=== PATIENT | female | born 1935 | race Caucasian/White ===

== ENCOUNTER 2016-08-07 10:31 | Day surgery (SDC) | payer MEDICARE ==
[~2016-08-07] VITALS: Ht 171.4 cm; Wt 93.4 kg
[~2016-08-07 10:31] MED LIST: ASCO500T8 PO; BUME1TAB17 PO; CALC-52 PO; CHOL200047 PO; CYAN100T PO; DABI150C PO; FOLI-75 PO; LETR2.5T4 PO; METF500S PO; METO100T5 PO; NORT25CA3 PO; NORT50CA PO; OMEP20CA4 PO
--- OUTSIDE RECORDS SUMMARY | 2016-08-07 10:35 | XMS REPORT | Continuity of Care Document ---
Author Author [facility] Organization [facility] Address Unknown Phone Unavailable Support Name Relationship Address Phone MARY ANN LONDONO MD Caregiver [facility] [address] [place] [address] JERMAINE CHAVEZ [address] [place] [address] [phone] HILL GODWIN DO Caregiver [facility] [address] [place] [address] [phone] GABRIELA TOVAR Next Of Kin [address] [place] [address] Insurance Providers Payer Name Policy Number Subscriber Name Relationship Medicare [id number] Kimberli June 18 Self [facility] [id number] Kimberli June 18 Self Advance Directives Directive Response Recorded Date/Time Ordered Resuscitation Status Full Code 07/11/14 3:14pm Resuscitation Documents on File No 07/11/14 2:57pm Problems No known problems or medical conditions. Medications Medication Dose Route Sig Days/Qty Instructions Order Date Discontinued Date Status Metoprolol Succinate 75 Mg PO BEDTIME 07/11/14 Active Omeprazole 20 Mg PO NEEDED Take 1 capsule, by mouth, one time a day before breakfast. 07/11/14 Active Nortriptyline HCl 25 Mg PO TWICE A DAY 07/11/14 Active Cholecalciferol (Vitamin D3) 1 Cap PO BEDTIME 07/11/14 Active Ezetimibe 1 Tab PO DAILY 07/11/14 Active Ascorbic Acid 1 Tab PO DAILY 07/11/14 Active Cyanocobalamin 1 Tab PO DAILY 07/11/14 Active [place]-3 Fatty Acids/Fish Oil 1,000 Mg PO DAILY 07/11/14 Active Multivitamin/Iron/Folic Acid 1 Tab PO DAILY 07/11/14 Active Calcium Carbonate 1,500 Mg PO DAILY 07/11/14 Active Aspirin 0.5 Tab PO BEDTIME 07/11/14 Active Social History Social History Problem Response Recorded Date/Time Chewing Tobacco Status No 07/12/2014 9:07am Hx Substance Use No 07/12/2014 9:07am Hx Alcohol Use No 07/12/2014 9:07am Has the pt used tobacco in the last 12 months No 07/12/2014 9:07am Query Response Start Date Stop Date Smoking Status Never smoker Hospital Discharge Instructions No hospital discharge instructions. Plan of Care No plan of care. Functional Status No functional status results. Allergies, Adverse Reactions, Alerts Allergen Type Severity Reaction Status Last Updated Gabapentin Allergy Unknown MENTAL CHANGES Active 07/11/14 Immunizations Name Given Type Hx Influenza Vaccination Y FALL 2013 Historical Hx Pneumococcal Vaccination Y 2008 Historical Hx Influenza Vaccination Y FALL 2013 Historical Vital Signs Acute Vital Signs Vital Response Date/Time Temperature (Fahrenheit) 96.0 deg F (96.8 - 99.1) Temperature (Calculated Celsius) 35.90899 degrees C (36.0 - 37.3) Pulse Rate (adult) 86 bpm (60 - 100) Respiratory Rate 16 breaths/min (10 - 20) Height 5 ft 6.5 in Weight 244 lb Body Mass Index 38.0 kg/m^2 Results Test Source Date Result Interp. Ref. Range Comments Activated Partial Thromboplast Time July 12, 2014 7:14am 30.8 SEC N 24-36 Alanine Aminotransferase (ALT/SGPT) July 12, 2014 7:14am 27 U/L N 9- 52 Albumin July 12, 2014 7:14am 3.9 G/DL N 3.5-5.0 Albumin % (PEP) July 01, 2014 5:00pm 56.2 % - Albumin (PEP) July 01, 2014 5:00pm 4.0 g/dL - Albumin/Globulin Ratio July 12, 2014 7:14am 1.1 RATIO N 1.1-2.2 Alkaline Phosphatase July 12, 2014 7:14am 71 U/L N 38-126 Mzvgk-1-Dawtatgzv July 01, 2014 5:00pm 0.3 g/dL - Kquqn-2-Tanzkwacv (%) July 01, 2014 5:00pm 4.1 % - Kerno-1-Gbaodszqg July 01, 2014 5:00pm 0.8 g/dL - Osvag-4-Jkxfzofhz (%) July 01, 2014 5:00pm 10.6 % - Anion Gap July 12, 2014 7:14am 11 MEQ/L N 5-15 Aspartate Amino Transf (AST/SGOT) July 12, 2014 7:14am 23 U/L N 14- 36 BUN/Creatinine Ratio July 12, 2014 7:14am 20 RATIO N 6-26 Basophils # (Auto) July 12, 2014 7:14am 0.1 T/MM3 N 0-0.2 COMMENT SCU WILL CALL Basophils (%) (Auto) July 12, 2014 7:14am 0.8 % N 0-2 COMMENT SCU WILL CALL Yydv-0-Pyzljwxx July 01, 2014 5:00pm 0.4 g/dL - Rncv-1-Cxadbewb (%) July 01, 2014 5:00pm 6.1 % - Vftw-6-Thhxnlza July 01, 2014 5:00pm 0.5 g/dL - Qujo-3-Sdvffhij (%) July 01, 2014 5:00pm 6.7 % - Blood Urea Nitrogen July 12, 2014 7:14am 16.0 MG/DL N 7-17 CA 27.29 July 01, 2014 5:00pm 16.80 U/ML N 0-37.7 Calcium Level July 12, 2014 7:14am 9.6 MG/DL N 8.4-10.2 Calculated Osmolality July 12, 2014 7:14am 276 MOSM/KG N 261-280 Carbon Dioxide Level July 12, 2014 7:14am 26 MEQ/L N 22-30 Chemistry Specimen Hemolysis July 12, 2014 7:14am < 15 0-25 0-25 : No Hemolysis.26-70: Slight Hemolysis - can falsely elevate K and Urine Protein. 71-285: Moderate Hemolysis - can falsely elevate K, Troponin I, CA 19-9, PTH, CSF GLucose, and Urine Protein, and can falsely decrease Phenytoin. 286-999: Gross Hemolysis - can falsely elevate K, Troponin I, CA 19-9, PTH, CSF Glucose, and Urine Protine, and can falsely decrease Phenytoin. Recommend specimen recollection. Chloride Level July 12, 2014 7:14am 105 MEQ/L N 98-107 Creatinine July 12, 2014 7:14am 0.8 MG/DL N 0.7-1.2 Eosinophils # (Auto) July 12, 2014 7:14am 0.1 T/MM3 N 0-0.5 COMMENT SCU WILL CALL Eosinophils (%) (Auto) July 12, 2014 7:14am 1.7 % N 0-4 COMMENT SCU WILL CALL Free [place] Light Chains July 01, 2014 5:00pm 2.16 mg/dL H - Reference Range:0.3300-1.94 Free [place]/Lambda Light Chain Ratio July 01, 2014 5:00pm 1.18 - Reference Range:0.2600-1.65 Test Performed by: [place] [address] Show Dog Trainer: Jian Monte M.D. Immunoglobulin Free Light Chains, Serum performed at [facility], [address] [place] [address] Fence Erector Supervisor Cooper Turner MD Free Lambda Light Chains July 01, 2014 5:00pm 1.83 mg/dL - Reference Range:0.5700-2.63 Test Performed by: [place] [address] Show Dog Trainer: Jian Monte M.D. Immunoglobulin Free Light Chains, [place] [address] Fence Erector Supervisor Cooper Turner MD Gamma Globulins July 01, 2014 5:00pm 1.2 g/dL - Gamma Globulins (%) July 01, 2014 5:00pm 16.3 % - Immunoelectrophoresis, no IMQ performed at [facility], [address] [place] [id number] Fence Erector Supervisor Cristofer Bowers DO Globulin July 12, 2014 7:14am 3.4 G/DL N 2.4-3.6 Glomerular Filtration Rate Calc July 12, 2014 7:14am 69 - Glucose Level July 12, 2014 7:14am 131 MG/DL H 65-110 Hematocrit July 12, 2014 7:14am 40.1 % N 36-46 COMMENT SCU WILL CALL Hemoglobin July 12, 2014 7:14am 13.2 GM/DL N 12-16 COMMENT SCU WILL CALL Icterus Index July 12, 2014 7:14am < 2 0-7 Immature Granulocyte # (Auto) July 12, 2014 7:14am 0.01 T/MM3 N 0.00 -0.03 COMMENT SCU WILL CALL Immature Granulocyte % (Auto) July 12, 2014 7:14am 0.1 % N 0.0-0.5 COMMENT SCU WILL CALL Immunoglobulin A July 01, 2014 5:00pm 351.01 MG/DL N 70-400 Immunoglobulin G July 01, 2014 5:00pm 1269.56 MG/DL N 700-1600 Immunoglobulin M July 01, 2014 5:00pm 93.72 MG/DL N 40-230 Lab Scanned Report July 03, 2014 12:43am LAB TEST FORM REQUEST - Lactate Dehydrogenase July 01, 2014 5:00pm 555 U/L N 313-618 Lymphocytes # (Auto) July 12, 2014 7:14am 2.5 T/MM3 N 1-4.8 COMMENT SCU WILL CALL Lymphocytes (%) (Auto) July 12, 2014 7:14am 33.2 % N 23-45 COMMENT SCU WILL CALL Mean Corpuscular Hemoglobin July 12, 2014 7:14am 30.2 UUG N 26-34 COMMENT SCU WILL CALL Mean Corpuscular Hemoglobin Concent July 12, 2014 7:14am 32.9 GM/DL N 31-37 COMMENT SCU WILL CALL Mean Corpuscular Volume July 12, 2014 7:14am 91.8 UM3 N 80-100 COMMENT SCU WILL CALL Mean Platelet Volume July 12, 2014 7:14am 10.5 UM3 N 9.4-12.4 COMMENT SCU WILL CALL Monocytes # (Auto) July 12, 2014 7:14am 0.5 T/MM3 N 0-0.8 COMMENT SCU WILL CALL Monocytes (%) (Auto) July 12, 2014 7:14am 7.1 % N 0-9.0 COMMENT SCU WILL CALL Neutrophils # (Auto) July 12, 2014 7:14am 4.3 T/MM3 N 1.8-7.7 COMMENT SCU WILL CALL Neutrophils (%) (Auto) July 12, 2014 7:14am 57.1 % N 33-66 COMMENT SCU WILL CALL Platelet Count July 12, 2014 7:14am 218 T/MM3 N 130-400 COMMENT SCU WILL CALL Potassium Level July 12, 2014 7:14am 4.1 MEQ/L N 3.6-5 Protein Electrophoresis Comment July 01, 2014 5:00pm see below - No monoclonal peaks or restricted areas observed byimmunofixation. Beta 2 greater than beta 1 is abnormal. Prothromb Time International Ratio July 12, 2014 7:14am 1.14 H 0.81- 1.09 THERAPUTIC RANGE=2.00-3.00 FOR ANTI-THROMBOSIS THERAPUTIC RANGE=2.50- 3.50 FOR IMPLANTED VALVE RDW Standard Deviation July 12, 2014 7:14am 45.3 FL N 36.9-50.2 COMMENT SCU WILL CALL Red Blood Count July 12, 2014 7:14am 4.37 M/MM3 N 4.00-5.20 COMMENT SCU WILL CALL Serum Total Protein July 01, 2014 5:00pm 7.1 g/dL - Immunoelectrophoresis, no IMQ performed at [facility], [address] [place] [address] Fence Erector Supervisor Cristofer Bowers DO Sodium Level July 12, 2014 7:14am 142 MEQ/L N 134-144 Total Bilirubin July 12, 2014 7:14am 0.70 MG/DL N 0.20-1.30 Total Protein July 12, 2014 7:14am 7.3 G/DL N 6.3-8.2 Turbidity July 12, 2014 7:14am < 20 0-20 White Blood Count July 12, 2014 7:14am 7.6 T/MM3 N 4.5-11.0 COMMENT SCU WILL CALL Procedures Procedure Status Date Provider(s) ULTRASOUND BREAST LIMITED completed 06/20/14 COMPUTER DX MAMMOGRAM ADD-ON completed 06/20/14 [id number]"DIAGNOSTIC MAMMOGRAPHY, PRODUCING DIRECT DIGITAL IMAG completed ROUTINE VENIPUNCTURE completed 07/01/14 COMPREHEN METABOLIC PANEL completed 07/01/14 ASSAY IGA/IGD/IGG/IGM EACH completed 07/01/14 ASSAY IGA/IGD/IGG/IGM EACH completed 07/01/14 ASSAY IGA/IGD/IGG/IGM EACH completed 07/01/14 LACTATE (LD) (LDH) ENZYME completed 07/01/14 ASSAY NEPHELOMETRY NOT SPEC completed 07/01/14 ASSAY NEPHELOMETRY NOT SPEC completed 07/01/14 ASSAY OF PROTEIN SERUM completed 07/01/14 PROTEIN E-PHORESIS SERUM completed 07/01/14 IMMUNOASSAY TUMOR CA 15-3 completed 07/01/14 IMMUNOFIX E-PHORESIS SERUM completed 07/01/14 Simple mastectomy of left breast with sentinel node biopsy completed MARY ANN LONDONO MD Encounters Encounter Location Date/Time Registered Clinic [facility] 07/01/14 4:44pm Registered Clinic [facility] 06/20/14 12:57pm
--- OUTSIDE RECORDS SUMMARY | 2016-08-07 10:35 | XMS REPORT | Continuity of Care Document ---
Author Author [facility] Organization [facility] Address Unknown Phone Unavailable Support Name Relationship Address Phone HILL GODWIN DO Caregiver [address] [place] [address] Unavailable IAN CASAREZ MD Caregiver Unknown Unavailable GABRIELA TOVAR Next Of Kin [address] [place] [address] Insurance Providers Guarantor Kimberli June Address [address] [place] [address] Email DENIED/NO PT PORTAL Payer Medicare Policy Number [id number] Subscriber's Name Kimberli June Relationship 18 Self Payer [facility] Policy Number [id number] Subscriber's Name Kimberli June Relationship 18 Self Advance Directives Directive Response Recorded Date/Time Ordered Resuscitation Status Full Code, unverified 02/13/16 12:25pm Resuscitation Documents on File Yes 02/14/16 12:28pm DPOA for Healthcare Only Yes 02/14/16 12:28pm Living Will Yes 02/14/16 12:28pm Problems Active Problems Medical Problem Onset Date Status Atrial fibrillation with RVR Unknown Resolved Essential hypertension Unknown Hyperglycemia due to type 2 diabetes mellitus Unknown Acute Hypertension, essential Unknown Chronic Obese Unknown Chronic Poorly controlled type 2 diabetes mellitus Unknown Acute Medications Current Home Medications Medication Dose Units Route Directions Days Qty Instructions Start Date Ascorbic Acid (Vitamin C) 500 Mg Tab.chew 500 Mg Oral Daily 07/11 Bumetanide 1 Mg Tablet 1 Tab Oral Daily 90 02/12/16 Calcium Carbonate (Calcium) 500 Mg Tablet 1,500 Mg Oral Daily Cholecalciferol (Vitamin D3) (Vitamin D3) 2,000 Unit Capsule 2,000 Mg Oral Daily 07/11/14 Cyanocobalamin (Vitamin B-12) Unknown Strength Tablet 1 Tab Oral Daily 07/11/14 Dabigatran Etexilate Mesylate (Pradaxa) 150 Mg Capsule 150 Mg Oral Twice A Day for Anticoagulation 30 Days 60 Capsule 10/12/15 Letrozole 2.5 Mg Tablet 2.5 Mg Oral Daily 08/28/15 Metformin Hcl 500 Mg Tablet 500 Mg Oral Twice Daily With Meals 30 Days Take one tablet, by mouth, 2 times a day with Meals. 08/28/15 Metoprolol Tartrate 100 Mg Tablet 1 Tab Oral Twice A Day 60 Multivitamin/Iron/Folic Acid (Centrum Complete Multivit Tab) 1 Each Tablet 1 Tab Oral Daily 07/11/14 Nortriptyline Hcl 25 Mg Capsule 25 Mg Oral Am 07/11/14 Nortriptyline Hcl 25 Mg Capsule 50 Mg Oral Bedtime 08/28/15 Omeprazole (Prilosec) 20 Mg Capsule.dr 20 Mg Oral As Needed 07/11 Past Home Medications Medication Directions Ordered Status Aspirin 81 Mg Tab.chew, 1 Tab Oral Daily 07/11/14 Discontinued Dabigatran Etexilate Mesylate (Pradaxa) 150 Mg Capsule, 150 Mg Oral Twice A Day for Anticoagulation 10/12/15 Discontinued Metoprolol Succinate 50 Mg Tab.er.24h, 75 Mg Oral Daily 07/11/14 Discontinued [place]-3 Fatty Acids/Fish Oil (Fish Oil 1,000 Mg Capsule) 1 Each Capsule, 1000 Mg Oral Daily 07/11/14 Discontinued Social History Social History Problem Response Recorded Date/Time Onset Date Status Chewing Tobacco Status No 02/14/2016 12:29pm Not Applicable Not Applicable Hx Substance Use No 02/14/2016 12:29pm Not Applicable Not Applicable Hx Alcohol Use No 02/14/2016 12:29pm Not Applicable Not Applicable Has the pt used tobacco in the last 12 months No 02/14/2016 12:29pm Not Applicable Not Applicable Tobacco Usage none 10/11/2015 5:12pm Not Applicable Not Applicable Query Response Start Date Stop Date Smoking Status Never smoker Hospital Discharge Instructions No hospital discharge instructions. Plan of Care Discharge Date 02/14/16 4:00pm Prescriptions See Medication Section Functional Status Query Response Date Recorded Ability to complete ADL's impeded by No change February 14, 2016 12:28pm Allergies, Adverse Reactions, Alerts Allergen Type Severity Reaction Status Last Updated Gabapentin Allergy Unknown MENTAL CHANGES Active 07/11/14 Atorvastatin Allergy Unknown Active 08/28/15 Immunizations Query Response on File Recorded Date/Time Hx Influenza Vaccination Y FEB 2015 02/14/16 12:29pm Hx Pneumococcal Vaccination No 02/14/16 12:29pm Hx Influenza Vaccination Y FEB 2015 02/14/16 12:29pm Influenza Vaccine Hx 02/201510/12/15 11:31am Vital Signs Acute Vital Signs Vital Response Date/Time Temperature (Fahrenheit) 96.9 deg F (96.8 - 99.1) 02/14/2016 3:21pm Temperature (Calculated Celsius) 36.27090 degrees C (36.0 - 37.3) 02/14/2016 3:21pm Temperature Source Temporal 02/14/2016 3:21pm Pulse Rate (adult) 100 bpm (60 - 100) 02/14/2016 3:50pm Respiratory Rate 16 breaths/min (10 - 20) 02/14/2016 3:50pm O2 Sat by Pulse Oximetry 96 % (90 - 100) 02/14/2016 3:50pm Oxygen Delivery Method Room Air 02/14/2016 3:50pm Blood Pressure 135/86 mm Hg 02/14/2016 3:50pm Blood Pressure Source Automatic Cuff 02/14/2016 3:50pm Height (Feet) 5 feet 02/14/2016 12:05pm Height (Inches) 7.00 inches 02/14/2016 12:05pm Weight (Kilograms) 94.700 kg 02/14/2016 12:05pm Body Mass Index (BMI) 32.7 02/14/2016 12:05pm Results Laboratory Results Test Name Result Units Flags Reference Collection Date/Time Result Date/ Time Comments White Blood Count 7.4 T/MM3 4.5-11.0 01/03/2016 9:30am 01/03/2016 9: 38am Red Blood Count 4.27 M/MM3 4.00-5.20 01/03/2016 9:30am 01/03/2016 9: 38am Hemoglobin 12.8 GM/DL 12-16 01/03/2016 9:30am 01/03/2016 9:38am Hematocrit 39.8 % 36-46 01/03/2016 9:30am 01/03/2016 9:38am Mean Corpuscular Volume 93.2 UM3 80-100 01/03/2016 9:30am 01/03/2016 9: 38am Mean Corpuscular Hemoglobin 30.0 UUG 26-34 01/03/2016 9:30am 2015 9:38am Mean Corpuscular Hemoglobin Concent 32.2 GM/DL 31-37 01/03/2016 9:3001/03/2016 9:38am RDW Standard Deviation 48.4 FL 36.9-50.2 01/03/2016 9:3001/03/2016 9 :38am Platelet Count 236 T/MM3 130-400 01/03/2016 9:3001/03/2016 9:38am Mean Platelet Volume 10.8 UM3 9.4-12.4 01/03/2016 9:3001/03/2016 9: 38am Neutrophils (%) (Auto) 58.9 % 33-66 01/03/2016 9:3001/03/2016 9: 38am Lymphocytes (%) (Auto) 30.7 % 23-45 01/03/2016 9:01/03/2016 9: 38am Monocytes (%) (Auto) 6.2 % 0-9.0 01/03/2016 9:01/03/2016 9:38am Eosinophils (%) (Auto) 3.1 % 0-4 01/03/2016 9:3001/03/2016 9:38am Basophils (%) (Auto) 0.8 % 0-2 01/03/2016 9:01/03/2016 9:38am Immature Granulocyte % (Auto) 0.3 % 0.0-0.5 01/03/2016 9:2015 9:38am Absolute Neutrophils (auto) 4.4 T/MM3 1.8-7.7 01/03/2016 9:2015 9:38am Absolute Lymphocytes (auto) 2.3 T/MM3 1-4.8 01/03/2016 9:302015 9:38am Absolute Monocytes (auto) 0.5 T/MM3 0-0.8 01/03/2016 9:3001/03/2016 9:38am Absolute Eosinophils (auto) 0.2 T/MM3 0-0.5 01/03/2016 9:302015 9:38am Absolute Basophils (auto) 0.1 T/MM3 0-0.2 01/03/2016 9:3001/03/2016 9:38am Absolute Immature Granulocyte (auto 0.02 T/MM3 0.00-0.03 01/03/2016 9: 30am 01/03/2016 9:38am Icterus Index < 2 0-7 01/03/2016 9:3001/03/2016 9:44am Chemistry Specimen Hemolysis < 15 0-25 01/03/2016 9:30am 01/03/2016 9 :44am 0-25: Specimen Exhibited No Hemolysis. Turbidity < 20 0-20 01/03/2016 9:30am 01/03/2016 9:44am Sodium Level 142 MEQ/L 134-144 01/03/2016 9:3001/03/2016 9:44am Potassium Level 4.0 MEQ/L 3.6-5 01/03/2016 9:3001/03/2016 9:44am Chloride Level 105 MEQ/L 98-107 01/03/2016 9:30am 01/03/2016 9:44am Carbon Dioxide Level 26 MEQ/L 22-30 01/03/2016 9:30am 01/03/2016 9: 44am Anion Gap 11 MEQ/L 5-15 01/03/2016 9:30am 01/03/2016 9:44am Blood Urea Nitrogen 23.0 MG/DL H 7-17 01/03/2016 9:3001/03/2016 9: 44am Creatinine 1.0 MG/DL 0.7-1.2 01/03/2016 9:3001/03/2016 9:44am BUN/Creatinine Ratio 23 RATIO 6-26 01/03/2016 9:3001/03/2016 9:44am Glomerular Filtration Rate Calc 53 01/03/2016 9:3001/03/2016 9: 44am Glucose Level 170 MG/DL H 65-110 01/03/2016 9:3001/03/2016 9:44am Calculated Osmolality 281 MOSM/KG H 261-280 01/03/2016 9:302015 9:44am Calcium Level 9.3 MG/DL 8.4-10.2 01/03/2016 9:30am 01/03/2016 9:44am Total Bilirubin 0.50 MG/DL 0.20-1.30 01/03/2016 9:30am 01/03/2016 9: 44am Alkaline Phosphatase 65 U/L 38-126 01/03/2016 9:30am 01/03/2016 9:44am Total Protein 7.2 G/DL 6.3-8.2 01/03/2016 9:30am 01/03/2016 9:44am Albumin 3.9 G/DL 3.5-5.0 01/03/2016 9:30am 01/03/2016 9:44am Globulin 3.3 G/DL 2.4-3.6 01/03/2016 9:30am 01/03/2016 9:44am Albumin/Globulin Ratio 1.2 RATIO 1.1-2.2 01/03/2016 9:30am 01/03/2016 9 :44am Aspartate Amino Transf (AST/SGOT) 19 U/L 14-36 01/03/2016 9:30am 2015 9:44am Alanine Aminotransferase (ALT/SGPT) 16 U/L 9-52 01/03/2016 9:30am 01/02 9:44am Lactate Dehydrogenase 436 U/L 313-618 01/03/2016 9:30am 01/03/2016 9: 44am Magnesium Level 1.9 MG/DL 1.6-2.3 01/03/2016 9:30am 01/03/2016 9:44am CA 27.29 12.39 U/ML 0-37.7 01/03/2016 9:30am 01/03/2016 10:31am Glucometer 88 mg/dL 65-110 02/14/2016 3:30pm 02/14/2016 3:35pm Procedures Procedure Status Date Provider(s) [id number] Completed 09/04/15 537946"MORE), PER 30 MINUTES" Completed 09/04/15 245048"MORE), PER 30 MINUTES" Completed 09/04/15 176002"MORE), PER 30 MINUTES" Completed 09/04/15 [id number]"MORE), PER 30 MINUTES" Completed 09/04/15 470606"DIAGNOSTIC MAMMOGRAPHY, PRODUCING DIRECT DIGITAL IMAG Completed [id number] SHOCK WAVE THERAPY; INVOLVING ELBOW EPI Completed COMPREHEN METABOLIC PANEL Completed 01/03/16 LACTATE (LD) (LDH) ENZYME Completed 01/03/16 ASSAY OF MAGNESIUM Completed 01/03/16 COMPLETE CBC W/AUTO DIFF WBC Completed 01/03/16 IMMUNOASSAY TUMOR CA 15-3 Completed 01/03/16 Cataract surgery Completed 02/14/16 IAN CASAREZ MD Encounters Encounter Location Arrival/Admit Date Discharge/Depart Date Attending Provider Departed [facility] 02/14/16 11:59am 02/14/16 4 :00pm IAN CASAREZ MD Registered [facility] 01/03/16 9:15am RASHID GLASS Registered [facility] 12/26/15 1:16pm RASHID GLASS Discharged [facility] 09/04/15 3:47pm 12/26/15 11:59pm MARGOTH MOSER
[2016-08-07 11:19] VITALS: Ht 171.4 cm; Wt 93.4 kg
[2016-08-07 11:20] VITALS: BP 141/68; PULSE 80; RESP 16; TEMP 98.1; O2SAT 96
[2016-08-07] MEDS: TROPICAMIDE 1% EYE DROPS 3ml LEFT EYE SCH ×3 (11:35→11:47)
[2016-08-07] MEDS: PROPARACAINE 0.5% EYE DROPS 15ml LEFT EYE SCH ×3 (11:35→11:47)
[2016-08-07] MEDS: MOXIFLOXACIN 0.5% EYE DROPS 3ml LEFT EYE SCH ×3 (11:35→11:47)
[2016-08-07] MEDS: CYCLOPENTOLATE 2% EYE DROPS 2ml LEFT EYE SCH ×3 (11:35→11:47)
[2016-08-07] MEDS: NEPAFENAC 0.1% EYE DROPS 3ml LEFT EYE SCH ×3 (11:35→11:47)
[2016-08-07] MEDS: PHENYLEPHRINE 2.5% EYE DROPS 5ml LEFT EYE SCH ×3 (11:35→11:47)
--- NOTE | 2016-08-07 13:01 | ANESPREOP ---
Anesthesia Record Date and Time DATE: 08/07/16 TIME: 13:00 Pre-Op Diagnosis cataract left eye Proposed Surgical Procedure PE WITH IOL OS NPO since: 0500 Allergies: Coded Allergies: atorvastatin (Verified Allergy, Unknown, 08/28/15) gabapentin (Unverified Allergy, Unknown, MENTAL CHANGES, 07/11/14) Ht/Wt/BMI Height: 5 ' 7.50 " Weight: 93.400 kg BMI: 31.8 kg/m2 Vital Signs Date Time Temp Pulse Resp B/P Pulse Ox O2 Delivery O2 Flow Rate FiO2 08/07/16 11:20 98.1 80 16 141/68 96 Room Air Medications Inpatient Medications Current Medications Medications (Trade) Dose Ordered Sig/Tara Start Time Stop Time Status Last Admin Dose Admin Cyclopentolate HCl (Cyclogyl 2%) 1 drop Q5M 08/07/16 16:00 08/07/16 16:11 08/07/16 11:47 1 DROP Tropicamide (Mydriacyl 1% Eye Drops) 1 drop Q5M 08/07/16 16:00 08/07/16 16:11 08/07/16 11:47 1 DROP Proparacaine HCl (Alcaine 0.5% Eye Drops) 1 drop Q5M 08/07/16 16:00 08/07/16 16:11 08/07/16 11:47 1 DROP Phenylephrine HCl (Rich-Synephrine 2.5% Eye Drops) 1 drop Q5M 08/07/16 16:00 08/07/16 16:11 08/07/16 11:47 1 DROP Tetracaine HCl (Tetracaine 0.5% Eye Drops) 1 drop PRN PRN 08/07/16 16:00 Moxifloxacin HCl (Vigamox) 1 drop Q5M 08/07/16 16:00 08/07/16 16:11 08/07/16 11:47 1 DROP Nepafenac (Nevanac 0.1% Eye Drops) 1 drop Q5M 08/07/16 16:00 08/07/16 16:11 08/07/16 11:47 1 DROP Ascorbic Acid (Vitamin C) 500 Mg Tab.chew, 500 MG PO DAILY, (Reported) Last Taken: on 08/06/16 0730 Bumetanide (Bumetanide) 1 Mg Tablet, 1 TAB PO DAILY, (Reported) Last Taken: on 08/06/16 1515 Calcium Carbonate (Calcium) 500 Mg Tablet, 1, 500 MG PO DAILY, (Reported) Last Taken: on 08/06/16729 Cholecalciferol (Vitamin D3) (Vitamin D3) 2, 000 Unit Capsule, 2,000 MG PO DAILY, (Reported) Last Taken: on 08/06/16729 Cyanocobalamin (Vitamin B-12) Unknown Strength Tablet, 1 TAB PO DAILY, (Reported) Last Taken: on 08/06/16729 Dabigatran Etexilate Mesylate (Pradaxa) 150 Mg Capsule, 150 MG PO BID Last Taken: on 08/03/16 0800 Letrozole (Letrozole) 2.5 Mg Tablet, 2.5 MG PO DAILY, (Reported) Last Taken: on 08/06/162129 Metformin HCl (Riomet) 500 Mg/5 Ml Solution, 1 UNIT PO BID, (Reported) Last Taken: on 08/06/162129 Metoprolol Tartrate (Metoprolol Tartrate) 100 Mg Tablet, 1 TAB PO BID, (Reported) Last Taken: on 08/06/162129 Multivitamin/Iron/Folic Acid (Centrum Complete Multivit Tab) 1 Each Tablet, 1 TAB PO DAILY, (Reported) Last Taken: on 08/06/16729 Nortriptyline HCl (Nortriptyline HCl) 25 Mg Capsule, 25 MG PO AM, (Reported) Last Taken: on 08/06/162129 Nortriptyline HCl (Nortriptyline HCl) 50 Mg Capsule, 2 CAP PO HS, (Reported) Last Taken: on 08/06/162129 Omeprazole (Prilosec) 20 Mg Capsule.dr, 20 MG PO PRN, (Reported) Last Taken: on 08/06/162129 Currently on Beta [place]: Yes Beta [place] Last Taken: metoprolol at 08/06/16 at 0730 Medical/Surgical History Anesthesia PMH: Reports: *Diabetes (TYPE 2), *Hypertension, Cancer (L BREAST LUMP REMOVED), Cardiac Arrythmia, Hepatitis (HX OF AGE 17), Hyperlipidemia, Murmur, Obesity, Reflux, Denies: *Angina, *OK, Anesthesia Reactions (NO AIRWAY ISSUES), Arthritis, Blood Transfusion Reac, CHF, Clotting Problems, Deep Vein Thrombosis, Glaucoma, Hiatal Hernia, Malignant Hyperthermia, Pacemaker, Renal Disease, Sleep Apnea, Thyroid Disease Smoking Status: Never smoker Has pt. smoked today?: No Use Chewing Tobacco?: No Second Hand Exposure: No Substance Use Type: does not use Past Surgical History Orthopedic Surgeries: No Abdominal Surgeries: Yes - AGUSTINA Genitourinary Surgeries: No Cardiac Surgeries: No Endocrine Surgeries: No Reproductive Surgeries: Yes - HYSTERECTOMY Neurological Surgeries: No Ear Surgeries: No Nose Surgeries: No Throat Surgeries: No Other Surgeries: Yes - LEFT EYE SURGERY,R BREAST LUMPECTOMY,T LEFT BREAST Anesthesia Adverse Reactions: FOUND none Family Hx of Anesthesia Advers: none Hx of Motion Sickness: No Pertinent Findings EKG Rhythm: Atrial Fibrillation Physical Exam Respiratory: Lungs clear Cardiovascular: FOUND Irregularly irregular, FOUND Systolic murmur Airway Assessment Mallampati Score: II TMD: 3 Fingerbreadths Neck Extension: Good Teeth: Upper Dentures, Lower Dentures Overall Assessment: No Airway Concerns ASA: 3 Plan Anesthesia Plan: MAC Discussion Discussed risks/options/alternatives of anesthesia and questions answered. Patient consents. Nursing pain assessment noted. Present: Children Attestation Statement Prior to the delivery of any anesthetic medication, I examined the patient, developed the plan, obtained the patient's consent and discussed the risk and benefits of the procedure with the patient/guardian. MIGUELITO METZGER CRNA Aug 07, 2016 13:01
[2016-08-07] MEDS ORDERED: MIDAZOLAM 2mg/2ml INJECTION ONE (13:57)
[2016-08-07] MEDS ORDERED: FENTANYL 100mcg/2ml INJECTION ONE (14:01)
[2016-08-07] MEDS ORDERED: SALINE FLUSH 10ml SYRINGE ONE (14:03)
[2016-08-07 14:21] VITALS: BP 160/90; PULSE 84; RESP 12; TEMP 97.2; O2SAT 93
--- NOTE | 2016-08-07 14:29 | ANESPO ---
Post-Op Note Date 08/07/16 Time: 14:28 Status Pt Participated in Evaluation: Pt participated in person Vital Signs Date Time Temp Pulse Resp B/P Pulse Ox O2 Delivery O2 Flow Rate FiO2 08/07/16 14:21 97.2 84 12 160/90 93 Room Air Respiratory Function: Airway patent, Regular respirations Cardiovascular Function: Regular pulse Mental Status: Alert/oriented Pain Level Intensity: 0 Unable to Assess Pain Due To: Medicated/Sleeping Hydration: Taking po fluids, IV infusing Complications during Recovery None apparent Post-Anesthesia Notes pt. elian. well Follow-Up Instructions Instructions Per Surgeon Additional Information none ABA MCCONNELL CRNA Aug 07, 2016 14:29
[2016-08-07 14:35] VITALS: BP 158/96; PULSE 80; RESP 16; O2SAT 95
[2016-08-07 14:50] VITALS: BP 151/96; PULSE 82; RESP 16; TEMP 97.3; O2SAT 95
[2016-08-07] MEDS ORDERED: BRIMONIDINE 0.2% EYE DROPS 5ml BOTH EYES ONE (15:54)
[2016-08-07] MEDS ORDERED: LIDOCAINE 1% (10mg/ml) 2ml SDV INJ ONE (16:00)
[2016-08-07] MEDS ORDERED: TETRACAINE 0.5% EYE DROPS 4ml BOTTLE LEFT EYE PRN (16:00)
--- NOTE | 2016-08-12 11:35 | OPNOTEF ---
DATE OF PROCEDURE 08/07/2016 PREOPERATIVE DIAGNOSIS Cataract, left eye. POSTOPERATIVE DIAGNOSIS Cataract, left eye. PROCEDURE Phacoemulsification with implantation of 20.5 diopter intraocular lens model SA60AT, left eye. ANESTHESIA Topical block monitored by Derek Quiros CRNA. SURGEON Sarah Sims MD PROCEDURE IN DETAIL The patient came to the [facility] and was escorted to the preanesthesia area where the appropriate monitoring, eyedrops, and topical anesthetic were administered. The patient was then taken into the operating room and the eye was prepped and draped in the standard sterile manner for ophthalmic surgery. A lid speculum was placed between the lids and the eye was irrigated with 5% Povidine iodine solution, followed by copious irrigation with sterile balanced salt solution after three minutes. The eye surgery began with the initial side port incision through the peripheral clear cornea. Lidocaine preservative free 1% was injected into the anterior chamber. Viscoelastic was exchanged for aqueous. A clear cornea incision was made just anterior to the vascular arcade with a steel keratome blade. A continuous curvilinear anterior capsulorrhexis was performed, followed by hydrodissection and hydrodelineation of the cataract. The phacoemulsification tip was then inserted through the incision into the anterior chamber, and the nucleus of the cataract was emulsified. The remaining cortical material was then aspirated and the posterior capsule was cleaned and polished. A posterior chamber intraocular lens was then implanted into the capsular bag with viscoelastic support. The viscoelastic was then removed from the eye by aspiration. The clear cornea incision was inspected to ensure a water tight seal. The lid speculum was removed. Vigamox, Nevanac, and Brimonidine eyedrops were instilled onto the eye and an eye shield was taped over the eye. The patient was dismissed to the responsible alliance party with postoperative instructions and a planned follow-up visit. CARLYLE
== END 2016-08-07 15:08 | disposition home or self-care (01) ==
LOC: NSC 10:31
PROVIDERS: ATTEND Ophthalmology
DX: H25.813 Combined forms of age-related cataract, bilateral (principal); E11.36 Type 2 diabetes mellitus with diabetic cataract; I10 Essential (primary) hypertension; Z79.84 Long term (current) use of oral hypoglycemic drugs; Z79.899 Other long term (current) drug therapy
CPT/HCPCS: 66984; 82948; A9270; C1780; J2250; J3010

== ENCOUNTER 2017-12-14 23:57 | Observation (INO) ==
[2017-12-15] MEDS ORDERED: PROCHLORPERAZINE 10 MG/2 ML INJECTION IVP PRN (00:14)
[2017-12-15] MEDS ORDERED: NS 1,000 ML IV ONE (00:15)
--- NOTE | 2017-12-15 00:19 | Emergency Department Report ---
General Adult HPI - General Stated complaint: dizziness, vomitting Time Seen by Provider: 12/15/17 00:13 Source: patient, EMS Mode of arrival: EMS Limitations: no limitations - History of Present Illness HPI narrative: Approximately one hour ago the patient began feeling lightheaded and nauseated with standing. She had been watching golf sitting in her recliner, when she got up and used her walker to go to the bathroom she began feeling ill. Patient denies difficulty breathing chest pain, headaches, vertigo, stomach cramps, diarrhea, or limb symptoms. Her only symptoms are lightheadedness, and then nausea with vomiting. Patient pushed her medical alert button, and EMS was dispatched. Patient was found to be in some distress secondary to burn to her illness, but her vital signs were normal, and patient was able to stand and get onto the cot." Mild left low back pain for several days, and has been taking Tylenol. Chronic medical conditions include atrial fibrillation, hypertension, diet- controlled diabetes, and history of breast cancer in the past. - Related Data Home Medications Medication Instructions Recorded Confirmed Multivitamin/Iron/Folic Acid 1 tab PO DAILY #0 07/11/14 12/15/17 [Centrum Complete Multivit Tab] Ascorbate Calcium [Vitamin C] 500 mg PO DAILY 11/28/17 12/15/17 Bumetanide Tab [Bumex 1 mg Tab] 1 mg PO DAILY 11/28/17 12/15/17 Calcium Carbonate 1,500 mg PO DAILY 11/28/17 12/15/17 Cholecalciferol (Vitamin D3) 2,000 unit PO DAILY 11/28/17 12/15/17 [Vitamin D3] Cyanocobalamin (Vitamin B-12) 1 tab PO DAILY 11/28/17 12/15/17 [Vitamin B-12] Letrozole 2.5 mg PO DAILY 11/28/17 12/15/17 Metformin HCl [Metformin HCl ER] 500 mg PO BID 11/28/17 12/15/17 Metoprolol Tartrate 100 mg PO BID 11/28/17 12/15/17 Nortriptyline HCl [Pamelor] 25 mg PO TID 11/28/17 12/15/17 Omeprazole [Prilosec] 20 mg PO PRN 11/28/17 12/15/17 Rivaroxaban [Xarelto] 20 mg PO DAILY 11/28/17 12/15/17 Allergies Allergy/AdvReac Type Severity Reaction Status Date / Time atorvastatin Allergy Unknown Verified 12/15/17 00:37 gabapentin Allergy Unknown MENTAL Verified 12/15/17 00:37 CHANGES Review of Systems All systems: reviewed and negative except as stated PFSH Patient Stated Medical History Hearing Loss Yes: HEARING AIDS Cardiac Arrhythmia Yes Hypertension Yes Diabetes Mellitus Type 2 Yes Gastroesophageal Reflux Yes Disease Hypertension A. fib Breast cancer past Diet controlled diabetes - Social History Smoking status: Never smoker Substance use type: does not use Alcohol intake frequency: does not drink Physical Exam - Limitations Limitations: altered mental status (initially patient seemed to be responding slowly, but once we spoke up, patient was able to respond without difficulty.) - General General appearance: alert, in no apparent distress, other (patient had one episode of what appeared to be syncope, however when I touch the patient's eyelids, her blink reflex was intact, and patient was immediately awake and able to answer questions. Patient's blood pressure and pulse at that time on the monitor had no changes.) - Normal Exams: Head:: Normocephalic without trauma Eyes:: Pupils are PERRLA w/ EOMI, No scleral icterus, irritation, or foreign bodies noted ENMT:: No facial trauma, nasal exudates, pharyngeal erythema, or exudates are noted Neck:: Full range of motion, without adenopathy, JVD, bruits or thyromegaly Chest/Respirations:: Clear all ponce, with good airflow, and symmetry bilaterally Cardiovascular:: Regular rate and rhythm, without murmur or gallop, Pulses 2+ all extremities, capillary refill, <2 seconds all extremities Abdomen:: Bowel sounds positive, soft, non-tender, non-distended, no hepatosplenomegaly, masses or bruits noted Lymphatic:: No lymphadenopathy, or lymphedema noted Musculoskeletal:: No tenderness, or deformity noted, good range of motion, all extremities Integumentary:: No rashes, hives, or bruising noted, hair and nails, without abnormality Neurological:: Patient is alert, and oriented, cranial nerves, motor/sensory/ cerebellar, exams w/o gross deficits, to observation Psychiatric:: Patient exhibits, appropriate attention, emotion and affect Course Vital Signs Temperature 96.8 F 12/15/17 00:00 Pulse Rate 85 12/15/17 00:00 Respiratory Rate 16 12/15/17 00:00 Blood Pressure 164/81 H 12/15/17 00:00 Pulse Oximetry 94 12/15/17 00:00 Temperature 96.8 F 12/15/17 00:00 Pulse Rate 85 12/15/17 00:00 Respiratory Rate 16 12/15/17 00:00 Blood Pressure 164/81 H 12/15/17 00:00 Pulse Oximetry 94 12/15/17 00:00 Medical Decision Making - MDM Narrative Medical decision making narrative: EKG shows atrial fibrillation with a controlled rate, No signs of ischemia or infarction CT scan of the head - n CBC - n CMP/L - N UA - n Patient given 1 L normal saline IV fluid bolus. Patient is able to ambulate to the bathroom with walker and assistance, but states that her lightheadedness is still to the point where she does not feel safe going home alone. Case is discussed with Dr. Barclay, who will admit the patient for observation on telemetry, IV fluids, and reassessment in the morning. - Lab Data Result diagrams: 12/15/17 00:14 12/15/17 00:14 Lab Results 12/15/17 12/15/17 12/15/17 Range/Units 00:14 00:14 02:08 WBC 10.4 (4.5-11.0) T/MM3 RBC 4.14 (4.00-5.20) M/MM3 Hgb 12.9 (12-16) GM/DL Hct 39.6 (36-46) % MCV 95.7 (80-100) UM3 MCH 31.2 (26-34) UUG MCHC 32.6 (31-37) GM/DL RDW Std Deviation 46.0 (36.9-50.2) FL Plt Count 233 (130-400) T/MM3 MPV 11.2 (9.4-12.4) UM3 Immature Gran % (Auto) 0.3 (0.0-0.5) % Neut % (Auto) 40.7 (33-66) % Lymph % (Auto) 47.4 H (23-45) % [place] % (Auto) 7.7 (0-9.0) % Eos % (Auto) 3.1 (0-4) % Baso % (Auto) 0.8 (0-2) % Neut # (Auto) 4.2 (1.8-7.7) T/MM3 Lymph # (Auto) 4.9 H (1-4.8) T/MM3 [place] # (Auto) 0.8 (0-0.8) T/MM3 Eos # (Auto) 0.3 (0-0.5) T/MM3 Baso # (Auto) 0.1 (0-0.2) T/MM3 Abs Immat Gran (auto) 0.03 (0.00-0.03) T/MM3 Turbidity < 20 (0-20) Sodium 144 (136-146) MEQ/L Potassium 4.2 (3.6-5) MEQ/L Chloride 104 (98-107) MEQ/L Carbon Dioxide 30 (22-30) MEQ/L Anion Gap 10 (5-15) meq/L BUN 19.0 H (7-17) MG/DL Creatinine 0.9 (0.7-1.2) mg/dL GFR Calculation 60 BUN/Creatinine Ratio 21 (6-26) RATIO Glucose 121 H (65-110) MG/DL Calculated Osmolality 280 (261-280) MOSM/KG Calcium 9.6 (8.4-10.2) MG/DL Total Bilirubin 0.40 (0.20-1.30) MG/DL Conjugated Bilirubin 0.00 (0.00-0.30) mg/dL Unconjugated Bilirubin 0.40 (0.00-1.1) mg/dL Icterus Index < 2 (0-7) AST 22 (14-36) U/L ALT 15 (1-35) U/L Alkaline Phosphatase 71 (38-126) U/L Troponin I < 0.012 (0-0.12) ng/ml Total Protein 7.8 (6.3-8.2) g/dL Albumin 4.2 (3.5-5.0) g/dL Globulin 3.6 (2.4-3.6) G/DL Albumin/Globulin Ratio 1.2 (1.1-2.2) RATIO Lipase 113 (23-300) U/L Specimen Hemolysis < 15 (0-25) Ur Collection Type Urine, void-cc/notcc Urine Color Yellow (YELLOW) Urine Clarity Clear Urine pH 6.0 (5.0-8.0) Ur Specific [place] 1.015 (1.015-1.025) Urine Protein Negative (NEGATIVE) Urine Glucose (UA) Negative (NEGATIVE) Urine Ketones Negative (NEGATIVE) Urine Occult Blood Negative (NEGATIVE) Urine Nitrate Negative (NEGATIVE) Urine Bilirubin Negative (NEGATIVE) Urine Urobilinogen 0.2 (NORMAL) EU/DL Ur Leukocyte Esterase Negative (NEGATIVE) Urinalysis Comment Microscopic not ind. Disposition Clinical Impression: Lightheadedness Vomiting Qualifiers: Vomiting type: unspecified Vomiting Intractability: non-intractable Nausea presence: with nausea Qualified Code(s): R11.2 - Nausea with vomiting, unspecified Disposition: To [facility] Condition: Improved Prescriptions: No Action Calcium Carbonate 1,500 mg PO DAILY Cyanocobalamin (Vitamin B-12) [Vitamin B-12] 1 tab PO DAILY Ascorbate Calcium [Vitamin C] 500 mg PO DAILY Omeprazole [Prilosec] 20 mg PO PRN Cholecalciferol (Vitamin D3) [Vitamin D3] 2,000 unit PO DAILY Metformin HCl [Metformin HCl ER] 500 mg PO BID Bumetanide Tab [Bumex 1 mg Tab] 1 mg PO DAILY Rivaroxaban [Xarelto] 20 mg PO DAILY Metoprolol Tartrate 100 mg PO BID Letrozole 2.5 mg PO DAILY Multivitamin/Iron/Folic Acid [Centrum Complete Multivit Tab] 1 tab PO DAILY # 0 Nortriptyline HCl [Pamelor] 25 mg PO TID Referrals: Alicia Austin MD [Primary Care Provider] - - Seen By: physician
[2017-12-15] MEDS: SALINE FLUSH 10ml SYRINGE IVF PRN ×2 (00:27→03:14)
[2017-12-15] MEDS ORDERED: ACETAMINOPHEN 500 MG TABLET PO ONE (03:01)
[2017-12-15] MEDS ORDERED: ORPHENADRINE 60 MG/2 ML INJECTION IVP ONE (03:01)
[2017-12-15] MEDS ORDERED: DEXTROSE 50% SYRINGE 50ml (1 AMP) IVP PRN (03:57)
[2017-12-15] MEDS ORDERED: ONDANSETRON 4 MG/2 ML INJECTION IVP PRN (03:57)
[2017-12-15] MEDS ORDERED: INSULIN ASPART 100unit/ml INJECTION SQ PRN (03:57)
[2017-12-15] MEDS ORDERED: ACETAMINOPHEN 325 MG TABLET PO PRN (03:57)
--- NOTE | 2017-12-15 04:14 | History & Physical Report ---
History of Present Illness Date: 12/15/17 Chief complaint: weak/dizzi HPI: This is a 82 y/o female who lives at home alone. has a medic alert button. She is checked on by her niece and her . The patient has a history of atrial fibrillation, HTN, DM2. The patient had onset of nausea/vomiting today. No diarrhea. No fever, chills but has had episodes of sweating. She got to the point that she couldn't get around in her home and called ems with her medic alert button. Several episodes of n/v. Upon arrival to the ED she is treated with compazine and her symptoms did improve. Lab work was reassuring. The patient at this time does not feel strong enough to go home. Based on her sx will hold off on her diuretic therapy and gentle hydration overnight and repeat labs in the am. We futher will rule her out as a precaution on telemetry monitoring. Review of Systems Review of systems: no headache, no change in vision no fever, chills had some sweats, no sore throat no neck or jaw pain no chest pain, no pnd, no orthopnea patient fell earlier this month and had a neg workup in the ED including CT head The patient had onset of low back pain earlier last week which has persisted and is exacerbated by movement. no injury associated with this pain other than the episode of falling 3 weeks ago no abdomen pain, nausea/vomiting as noted above, no blood no diarrhea, no urine sx no focal motor weakness chronic edema to legs. 12 point ROS otherwise negative except for outlined above Past Medical History Medical History: Medical History (Last Updated 12/15/17 @ 10:38 by Kaykay Reaves MD) Atrial fibrillation Breast cancer Right lumpectomy May 2014, Dr. Pennington Diabetes mellitus, type II With neuropathy Hypertension Osteoporosis Medical History Updates: atrial fibrillation, hyperension, dm2 , breast cancer Surgical History: cholecystectomy, lumpectomy right breast, TAHBSO, bilateral catacts Family History: non contributory Family History: As Above - Social History Smoking status: Never smoker Substance use type: does not use Alcohol intake: never Alcohol intake frequency: does not drink Housing: house Household members: none service: No Current occupational status: retired Does patient use chewing tobacco?: No Current residence: Apartment/Private Home Medications Home Medications Medication Instructions Recorded Confirmed Type Multivitamin/Iron/Folic Acid 1 tab PO DAILY #0 07/11/14 12/15/17 History [Centrum Complete Multivit Tab] Ascorbate Calcium [Vitamin C] 500 mg PO DAILY 11/28/17 12/15/17 History Bumetanide Tab [Bumex 1 mg Tab] 1 mg PO DAILY 11/28/17 12/15/17 History Calcium Carbonate 1,500 mg PO DAILY 11/28/17 12/15/17 History Cholecalciferol (Vitamin D3) 2,000 unit PO DAILY 11/28/17 12/15/17 History [Vitamin D3] Cyanocobalamin (Vitamin B-12) 1 tab PO DAILY 11/28/17 12/15/17 History [Vitamin B-12] Letrozole 2.5 mg PO DAILY 11/28/17 12/15/17 History Metformin HCl [Metformin HCl ER] 500 mg PO BID 11/28/17 12/15/17 History Metoprolol Tartrate 100 mg PO BID 11/28/17 12/15/17 History Nortriptyline HCl [Pamelor] 25 mg PO TID 11/28/17 12/15/17 History Omeprazole [Prilosec] 20 mg PO PRN 11/28/17 12/15/17 History Rivaroxaban [Xarelto] 20 mg PO DAILY 11/28/17 12/15/17 History Allergies Allergy/AdvReac Type Severity Reaction Status Date / Time atorvastatin Allergy Unknown Verified 12/15/17 00:37 gabapentin Allergy Unknown MENTAL Verified 12/15/17 00:37 CHANGES Exam Vital Signs: Temperature 96.6 F L 12/15/17 03:58 Pulse Rate 78 12/15/17 03:58 Respiratory Rate 14 12/15/17 03:58 Blood Pressure 143/89 H 12/15/17 03:58 Pulse Oximetry 97 12/15/17 03:58 Telemetry Rhythm: A-fib Height/Weight/BMI: Height 1.73 m Weight 110 kg - Constitutional Present: mild distress, well nourished, well developed, obese, cooperative - Routine HEENT Exam Head: Present: normocephalic, atraumatic Eye: Present: EOMI, normal accommodation, conjunctivae pink ENT: Present: mucous membranes dry - Routine Neck Exam Present: supple, full ROM - Routine Respiratory Exam Present: CTA bilaterally - Routine Cardiovascular Exam Present: irregularly irregular - Routine Abdominal Exam Present: soft, normoactive bowel sounds, non distended, non tender - Routine Extremities Exam Present: edema, full ROM - Routine Skin Exam Present: intact - Routine Neurological Exam Present: alert, oriented X3, CN II-XII intact, moving all extremities, normal tone, vision grossly intact, normal speech - Routine Psychiatric Exam Present: normal affect, normal thought process Results - Labs CBC & Chem 7: 12/15/17 05:51 12/15/17 05:51 Labs: reviewed and will be discussed below Assessment and Plan (1) Gastroenteritis Current visit: Yes Status: Acute Assessment and Plan: 1. nausea/vomiting acute POA; enteritis possibly, increased lymph on cbc. fluids, hold diuretic therapy and reassess in the am, abdomen exam is non surgical and no evidence of significant intra abdominal process occurring. 2. weakens and gait mobility chronic with acute worsening POA: pt and ot cx. borderline unstable gait at home, uses walker to ambulate. now with increased low back pain increased risk of falling at home. potential need to go to assisted living at discharge. 3. muscle strain low back acute POA: will do lumbar films in the am to better address. prn pain meds for now 4. DM2 chronic POA; corretional plan 5. HTN chronic POA: continue home meds, adjust as indicated 6. atrial fib chronic POA: on antithrombin agent, monitor on tele and rule out as a precaution. possible rate issue ppt events today DVT Prophylaxis: SCD's, Xarelto Resuscitation Status: Do Not Resuscitate - Time spent with patient Time with patient PN: 30 minutes - Physician Narrative Physician: Kaykay Reaves MD Narrative: Date: 12/15/17 Time: 1040 Dr. Barclay's note reviewed. Mrs. June interviewed and examined. The patient's niece/DPOA Jackie provide supplemental history CC: Nausea/vomiting; back pain HPI: Mrs. June is an 82-year-old female who typically lives at home independently with assistance of her niece. She reports eating dinner without difficulty yesterday evening but later in the evening began feeling nauseated and lightheaded when she stood. This was followed by some stomach cramping and emesis. She denies hematemesis. She reports onset of diaphoresis with nausea and vomiting at which time she contacted EMS with her medical alert button and was transported to the emergency room for further evaluation. Patient describes feeling very weak and that she couldn't get around and move safely at home independently. She denied chest pain or palpitations. She's had no diarrhea and vomiting subsided after an episode when EMS arrived. She's had no emesis since arrival at the hospital and treatment with Compazine in the emergency room. Patient was felt to be too weak to return home and was subsequently hospitalized for fluids overnight and further assessment. Her niece indicated some reservations about the patient's safety living independently and questioned whether short-term group home placement could be considered. The patient has had several falls at home over the past 6 months including 1 on 11/28 at which time she was seen in the emergency room and had several chaim placed in the scalp laceration. She does not describe back pain at that time but has reported increasing back pain over the past day or 2 localizing pain to the left low back. At present back pain is the patient's primary concern. She has no radicular symptoms. PH/SH/FH: agree with that recorded above by Dr. Barclay with my additions as above. Family history positive for multiple malignancies including mother with ovarian cancer, father with lung cancer, one brother with lung cancer, and sister with breast cancer. ROS: 10 point review as per Dr. Barclay. EXAM: General-pleasantly confused elderly female-defers much of history to her niece, fluent speech; 96.6, 143/86 supine, 111/58 standing (chronic per Jackie), heart rate 78, 97% on room air HEENT-PERRL, EOMI without nystagmus, conjunctiva clear, sclera anicteric, conjugate gaze, facial structures symmetric, oropharynx clear, neck supple and without adenopathy Lungs-respirations nonlabored, good airflow, breath sounds clear Cardiac-irregular rhythm, S1-S2 Abd-soft, nontender, bowel sounds present, no mass or fullness palpable Ext-+1 edema RLE, trace edema LLE Skin-generalized pallor, no wounds or rashes present; no bruising present over low-back Musculoskeletal-tender to palpation over the left SI joint and left paraspinal muscles low back, no tenderness over lumbar spine Neuro-cranial nerves 3-12 intact, no tremor, motor tone normal, no drift upper extremities, radiologist 4+/5 bilaterally, dorsiflexion/plantarflexion symmetrically intact/strong; sensation intact to light touch 4 extremities Psych-Dull, cooperative, pleasant DATA: Initial chemistry/CBC as above, liver enzymes unremarkable. Troponin < 0.012-<0.012-0.014 TSH 2.27; UA unremarkable ECG reviewed by myself revealing atrial fibrillation with rate of 80, low voltage in the precordial leads, no acute changes CT head also reviewed by myself is without evidence of acute pathology; scattered microvascular ischemic changes. LS spine films also reviewed by myself and without acute change-formal reading pending A/P: Acute gastroenteritis Left low back pain Generalized weakness Ambulatory dysfunction Orthostatic hypotension, chronic per history Diabetes mellitus Hypertension Atrial fibrillation Peripheral neuropathy Patient has been hydrated since arrival and is tolerating limited oral intake this morning without recurrent nausea or vomiting. She has not required additional antiemetics since Compazine in the ER just after midnight. Serial troponins unremarkable and no acute changes on EKG. PT/OT evaluations pending to assess patient safety and ability to ambulate; may require short-term group home placement. Mild orthostasis present which her niece describes as chronic, may relate to nortriptyline use. Patient is historically vague, suspect component of dementia which has not been formally evaluated. JOVANNY to be obtained. Monitor accuchecks, metformin on hold at present until oral intake improves. Hospitalized observation status. Outpatient records reviewed, prior records reviewed. DNR confirmed with DPOA. Hospital Course Summary Disclaimer: The visit summary below is not to be considered part of the above Progress Note.
[2017-12-15] MEDS ORDERED: FALL RISK - PHARMACY CONSULT MC ONE (06:37)
[2017-12-15] MEDS: NS 1,000 ML IV SCH ×2 (07:24→14:54)
--- NOTE | 2017-12-15 08:23 | CT Scan Report ---
Indication: sudden onset light headedness and vomiting PROCEDURE: CT head/brain wo con: Encounter: Initial Comparison: 11/28/2017 Technique: Axial CT images through the head were performed without contrast. Iterative Reconstruction dose reducing technique was utilized. FINDINGS: The ventricles are of normal size, shape, and contour for the patient's age. There are scattered areas of low attenuation in the white matter which most likely represent changes from chronic microvascular ischemia. The brainstem, cerebellum, and cerebral hemispheres otherwise have a normal morphology and CT attenuation. There is no evidence of midline displacement. No hemorrhage, signs of acute territorial stroke, mass effect, mass lesions, or edema is evident. The visualized portions of the skull base, midface, and calvarium demonstrate no abnormality. The paranasal sinuses are well aerated and free of significant disease. The tympanic and mastoid cavities appear normal. IMPRESSION: No acute intracranial abnormality or hemorrhage. .
[2017-12-15] MEDS: NORTRIPTYLINE 25 MG CAPSULE PO SCH ×3 (08:38→20:21)
[2017-12-15] MEDS: HYDROCODONE/APAP 5mg/325mg TABLET PO PRN (08:39)
[2017-12-15] MEDS: POLYETHYL GLYCOL 3350 17gm PACKET PO SCH (08:49)
[2017-12-15] MEDS ORDERED: RIVAROXABAN 20 MG TABLET PO SCH (09:00)
--- NOTE | 2017-12-15 11:38 | XRay Report ---
Indication: low back pain PROCEDURE: XR lumbar spine 2-3V: Encounter: Initial Comparison: None. Findings: The spine demonstrates coarsening of the trabecular pattern suggesting osteopenia or osteoporosis. There is moderate degenerative disc disease and there is moderate posterior facet arthropathy. There is dense calcification of the abdominal aorta without definite aneurysmal dilation. The vertebral body heights and the alignments appear well preserved. Impression: Moderate degenerative disc disease and moderate posterior facet arthropathy. Moderate coarsening of the trabecular pattern suggesting osteoporosis. No definite acute appearing fracture or subluxation. MRI with sagittal STIR weighted sequences would be more specific for detection of occult fracture if this is suspected. .
[2017-12-15 17:14] VITALS: BMI 33.0
[2017-12-15] MEDS: RIVAROXABAN 20 MG TABLET PO SCH (18:44)
[2017-12-16] MEDS: HYDROCODONE/APAP 5mg/325mg TABLET PO PRN (08:52)
[2017-12-16] MEDS: NORTRIPTYLINE 25 MG CAPSULE PO SCH ×2 (08:52→20:56)
[2017-12-16] MEDS: POLYETHYL GLYCOL 3350 17gm PACKET PO SCH (08:52)
[2017-12-16] MEDS ORDERED: PNEUMOCOCCAL 13 VACCINE 0.5ml INJECTION IM ONE (14:04)
--- NOTE | 2017-12-16 16:43 | Progress Note ---
- Date 12/16/17 Subjective: Mrs. June is seen today in follow up. She reports feeling very well. No pain. No further N/V. Reports that she feels that she is doing much better overall. Reports she is trying to decide if she needs to go to a NH or back home given recent fall. Objective Vital signs: Temperature 96.1 F L 12/16/17 08:18 Pulse Rate 86 12/16/17 15:12 Respiratory Rate 18 12/16/17 15:12 Blood Pressure 114/69 12/16/17 15:12 Pulse Oximetry 93 12/16/17 15:12 Height/Weight/BMI: Height 1.73 m Weight 101 kg Body Mass Index 33.0 - Constitutional Present: no acute distress, well nourished, well developed, obese, cooperative - Routine HEENT Exam Head: Present: normocephalic, atraumatic Eye: Present: EOMI, PERRL ENT: Present: mucous membranes moist - Routine Respiratory Exam Present: CTA bilaterally. Absent: rales, rhonchi, wheezes - Routine Cardiovascular Exam Present: RRR, S1, S2, no murmur - Routine Abdominal Exam Present: soft, non distended, non tender - Routine Extremities Exam Present: non tender, pulses intact - Routine Musculoskeletal Exam Musculoskeletal: Present: no clubbing or cyanosis, moving extremities well - Routine Skin Exam Present: intact, dry, warm - Routine Neurological Exam Present: alert, moving all extremities - Routine Psychiatric Exam Present: cooperative Results - Labs CBC & Chem 7: 12/15/17 05:51 12/16/17 17:09 - Impressions Lumbar spine Impression: Moderate degenerative disc disease and moderate posterior facet arthropathy. Moderate coarsening of the trabecular pattern suggesting osteoporosis. No definite acute appearing fracture or subluxation. Assessment and Plan Assessment and Plan: 1. nausea/vomiting acute POA; enteritis possibly, increased lymph on cbc, now resolved. GI symptoms have resolved. Repeat BMP now for stability. Holding diuretics. 2. weakens and gait mobility chronic with acute worsening POA: PT recommending IRU vs SNU. Could send an IRU screen. Pt. lives home alone, so higher risk of injury with falls. 3. muscle strain low back acute POA: Lumbar films reviewed. Continue symptomatic meds. She reports she is currently pain free. 4. DM2 chronic POA; Holding metformin. BG fairly well controlled. 5. HTN chronic POA: BP low normal. Repeat BMP for hydration status. Metoprolol. 6. atrial fib chronic POA: HR controlled on metoprolol. She is chronically on Xarelto as well. Monitor for fall risk. DC planning ongoing. Continue supportive care. Assessment Acute gastroenteritis Left low back pain Generalized weakness Ambulatory dysfunction Orthostatic hypotension, chronic per history Diabetes mellitus Hypertension Atrial fibrillation Peripheral neuropathy Obesity with BMI 33.9 Plan Not had further episodes of nausea/vomiting. IRU evaluation placed but patient's functional status to great to qualify for IRU. OT performed JOVANNY: Pt. scored a 10 - a score of 6 or greater indicates Pt. will require assist to live within the community. Deciding between home health and private pay respite care at [facility]. Concern with patient's weakness going home may be problematic. Continue with OBS status and continue to work on discharge disposition. DVT Prophylaxis: Xarelto Resuscitation Status: Do Not Resuscitate - Physician Narrative Physician: Romeo Oviedo MD Narrative: Date: 12/16/17 Time: 1823 Have independently interviewed & examined pt. Chart reviewed. Case discussed with CM & my PA. Care plan developed with my supervision; agree with above. Doing okay. Not having n/v. Eating well. Breathing well. Has been working well with therapy. Not SOA or congested. No chest pain. Lab stable. Lungs: decreased, no distress CV: irregularly irregular AB: soft nt MSE: awake alert Plan: Continue to work on discharge disposition. My concern is her needs are greater than what can be provided with HH. May need respite stay at care facility. Hospital Course Summary Disclaimer: The visit summary below is not to be considered part of the above Progress Note. Hospital Course: 12/15/17 Patient has been hydrated since arrival and is tolerating limited oral intake this morning without recurrent nausea or vomiting. She has not required additional antiemetics since Compazine in the ER just after midnight. Serial troponins unremarkable and no acute changes on EKG. PT/OT evaluations pending to assess patient safety and ability to ambulate; may require short-term skilled nursing placement. Mild orthostasis present which her niece describes as chronic, may relate to nortriptyline use. Patient is historically vague, suspect component of dementia which has not been formally evaluated. JOVANNY to be obtained. Monitor accuchecks, metformin on hold at present until oral intake improves. Hospitalized observation status. Outpatient records reviewed, prior records reviewed. DNR confirmed with DPOA. 12/16/17 Not had further episodes of nausea/vomiting. IRU evaluation placed but patient's functional status to great to qualify for IRU. OT performed JOVANNY: Pt. scored a 10 - a score of 6 or greater indicates Pt. will require assist to live within the community. Deciding between home health and private pay respite care at [facility]. Concern with patient's weakness going home may be problematic. Continue with OBS status and continue to work on discharge disposition.
[2017-12-16] MEDS: RIVAROXABAN 20 MG TABLET PO SCH (18:49)
[2017-12-17] MEDS: HYDROCODONE/APAP 5mg/325mg TABLET PO PRN ×2 (05:04→12:30)
[2017-12-17] MEDS: NORTRIPTYLINE 25 MG CAPSULE PO SCH (09:29)
[2017-12-17] MEDS: POLYETHYL GLYCOL 3350 17gm PACKET PO SCH (09:30)
--- NOTE | 2017-12-17 11:58 | Progress Note ---
- Date 12/17/17 Subjective: F/U: Acute gastroenteritis, Left low back pain, Generalized weakness Doing well today. Has been walking in halls with walker and assistance-doing okay with these activities. No further n/v. Eating well. No ab pain. Urinating well. Breathing without difficulty-not SOA or congested. No chest pain. Objective Vital signs: Temperature 97.2 F 12/17/17 07:53 Pulse Rate 86 12/17/17 08:00 Respiratory Rate 20 12/17/17 07:53 Blood Pressure 135/71 12/17/17 07:53 Pulse Oximetry 94 12/17/17 07:53 Height/Weight/BMI: Height 1.73 m Weight 101.9 kg Body Mass Index 33.0 - Constitutional Present: no acute distress, well nourished, well developed, obese, cooperative - Routine HEENT Exam Head: Present: normocephalic, atraumatic Eye: Present: EOMI, PERRL, normal accommodation ENT: Present: mucous membranes moist - Routine Respiratory Exam Present: decreased breath sounds. Absent: rales, respiratory distress, rhonchi , wheezes, crackles - Routine Cardiovascular Exam Present: irregular rhythm, irregularly irregular - Routine Abdominal Exam Present: soft, normoactive bowel sounds, non distended, non tender - Routine Extremities Exam Present: edema (Trace BLE). Absent: cyanosis, clubbing Comments: SCD in place - Routine Skin Exam Present: dry, warm - Routine Neurological Exam Present: alert, CN II-XII intact, moving all extremities, vision grossly intact , hearing grossly intact, normal speech. Absent: motor deficit, altered mental status - Routine Psychiatric Exam Present: normal affect, normal thought process, cooperative. Absent: anxious, agitated, paranoid Results - Labs CBC & Chem 7: 12/17/17 08:50 12/17/17 08:50 Assessment and Plan (1) Gastroenteritis Current visit: Yes Status: Acute Assessment and Plan: Assessment Acute gastroenteritis Left low back pain Generalized weakness Ambulatory dysfunction Orthostatic hypotension, chronic per history Diabetes mellitus Hypertension Atrial fibrillation Peripheral neuropathy Obesity with BMI 33.9 Plan Clinically doing well. No n/v. Eating well. Ambulating in halls. Lab stable. Arrangements made for short stay of nursing care at [facility]. As medically stable, can discharge. Will continue with chronic home medications. PT/OT to help improve functional status. F/U with Dr Austin in 1 week. See orders for details. Case discussed with CM and family member. Time spent with care and discharge greater than 30 minutes. DVT Prophylaxis: SCD's Resuscitation Status: Do Not Resuscitate - Physician Narrative Physician: Romeo Oviedo MD Narrative: Date: 12/17/17 Time: 1154 Hospital Course Summary Disclaimer: The visit summary below is not to be considered part of the above Progress Note. Hospital Course: 12/15/17 Patient has been hydrated since arrival and is tolerating limited oral intake this morning without recurrent nausea or vomiting. She has not required additional antiemetics since Compazine in the ER just after midnight. Serial troponins unremarkable and no acute changes on EKG. PT/OT evaluations pending to assess patient safety and ability to ambulate; may require short-term snf placement. Mild orthostasis present which her niece describes as chronic, may relate to nortriptyline use. Patient is historically vague, suspect component of dementia which has not been formally evaluated. JOVANNY to be obtained. Monitor accuchecks, metformin on hold at present until oral intake improves. Hospitalized observation status. Outpatient records reviewed, prior records reviewed. DNR confirmed with DPOA. 12/16/17 Not had further episodes of nausea/vomiting. IRU evaluation placed but patient's functional status to great to qualify for IRU. OT performed JOVANNY: Pt. scored a 10 - a score of 6 or greater indicates Pt. will require assist to live within the community. Deciding between home health and private pay respite care at [facility]. Concern with patient's weakness going home may be problematic. Continue with OBS status and continue to work on discharge disposition. 12/17/17 Clinically doing well. No n/v. Eating well. Ambulating in halls. Lab stable. Arrangements made for short stay of nursing care at [facility]. As medically stable, can discharge. Will continue with chronic home medications. PT/OT to help improve functional status. F/U with Dr Austin in 1 week. See orders for details.
--- NOTE | 2017-12-17 12:05 | Extended Care Facility Orders ---
Admission Orders Admit to:: [facility] Allergies/Adverse Reactions: Allergies atorvastatin Allergy (Unknown, Verified 12/15/17 00:37) gabapentin Allergy (Unknown, Verified 12/15/17 00:37) MENTAL CHANGES Admitting Diagnosis: Lightheadedness and vomiting Admitting Physician: Romeo Oviedo MD Attending Physician: Dr Austin Code Status: Do Not Resuscitate Anticiapted Length of Stay: 30 days or less Rehab Potential: fair Rehab Prognosis: fair Diet: No added salt, no concentrated sweets May use Facility Protocol or Standing Orders: Yes May have flu vaccine: Yes Evaluations/Treatment: PT, OT Mcc Certification: I certify that SNF services are required to be given on an Inpatient basis because of the patients need for custodial care on a continuing basis for the condition(s) for which he/she received inpatient hospital services prior to his/her transfer to the SNF. SNF inpatient care is necessary for the following reasons Indication for M[facility]: Not Applicable - Additional Information In Event of Arrest: Do Not Start CPR Resident is Aware of Diagnosis: Yes Referrals: Alicia Austin MD [Primary Care Provider] - 1 Week (Hospital follow up - OBS admission for n/v and lightheadedness. Stay on [facility] to help improve funcitonal status. ) Additional Orders: Nursing care to help supervise medication and provide education and support for her DM, Afib, and medication management. Need additional nursing care and therapy to help improve functional abilities. GRACE hose - on in am/off at night. Accuchecks fasting and 2 hours after meals, and as needed.
--- NOTE | 2017-12-17 12:11 | Discharge Summary ---
Discharge Information Date of admission: 12/15/17 02:59 Anticipated date of discharge: 12/17/17 Attending Physician: Romeo Oviedo MD Primary care physician: Alicia Austin MD Consults: PT/OT - Discharge Diagnosis (1) Gastroenteritis Status: Acute Discharge diagnosis Acute gastroenteritis Associated conditions and complications Left low back pain Generalized weakness Ambulatory dysfunction Orthostatic hypotension, chronic per history Diabetes mellitus Hypertension Atrial fibrillation Peripheral neuropathy Obesity with BMI 33.9 - Laboratory Labs: Admit Lab 12/15/17 00:14 WBC 10.4 Hgb 12.9 Hct 39.6 MCV 95.7 Plt Count 233 Neut % (Auto) 40.7 Lymph % (Auto) 47.4 H Eos % (Auto) 3.1 Baso % (Auto) 0.8 Admit Lab 12/15/17 12/15/17 00:14 05:51 Sodium 144 Potassium 4.2 Chloride 104 Carbon Dioxide 30 Anion Gap 10 BUN 19.0 H Creatinine 0.9 GFR Calculation 60 BUN/Creatinine Ratio 21 Glucose 121 H Calculated Osmolality 280 Calcium 9.6 Total Bilirubin 0.40 Conjugated Bilirubin 0.00 Unconjugated Bilirubin 0.40 AST 22 ALT 15 Alkaline Phosphatase 71 Troponin I < 0.012 Total Protein 7.8 Albumin 4.2 Globulin 3.6 Albumin/Globulin Ratio 1.2 Lipase 113 TSH 2.27 12/17/17 08:50 12/17/17 08:50 - Radiology Radiology: Date of Exam: 12/15/17 Type of Exam: CT head/brain wo con FINDINGS: The ventricles are of normal size, shape, and contour for the patient' s age. There are scattered areas of low attenuation in the white matter which most likely represent changes from chronic microvascular ischemia. The brainstem , cerebellum, and cerebral hemispheres otherwise have a normal morphology and CT attenuation. There is no evidence of midline displacement. No hemorrhage, signs of acute territorial stroke, mass effect, mass lesions, or edema is evident. The visualized portions of the skull base, midface, and calvarium demonstrate no abnormality. The paranasal sinuses are well aerated and free of significant disease. The tympanic and mastoid cavities appear normal. IMPRESSION: No acute intracranial abnormality or hemorrhage. ----- Date of Exam: 12/15/17 Type of Exam: XR lumbar spine 2-3V Findings: The spine demonstrates coarsening of the trabecular pattern suggesting osteopenia or osteoporosis. There is moderate degenerative disc disease and there is moderate posterior facet arthropathy. There is dense calcification of the abdominal aorta without definite aneurysmal dilation. The vertebral body heights and the alignments appear well preserved. Impression: Moderate degenerative disc disease and moderate posterior facet arthropathy. Moderate coarsening of the trabecular pattern suggesting osteoporosis. No definite acute appearing fracture or subluxation. MRI with sagittal STIR weighted sequences would be more specific for detection of occult fracture if this is suspected. History of Present Illness HPI: This is a 82 y/o female who lives at home alone. Has a medic alert button. She is checked on by her niece and her . The patient has a history of atrial fibrillation, HTN, DM2. The patient had onset of nausea/vomiting today. No diarrhea. No fever, chills but has had episodes of sweating. She got to the point that she couldn't get around in her home and called ems with her medic alert button. Several episodes of n/v. Upon arrival to the ED she is treated with Compazine and her symptoms did improve. Lab work was reassuring. The patient at this time does not feel strong enough to go home. Based on her sx will hold off on her diuretic therapy and gentle hydration overnight and repeat labs in the am. We further will rule her out as a precaution on telemetry monitoring. For complete details of the H&P refer to that document. Objective Vital signs: Temperature 97.2 F 12/17/17 07:53 Pulse Rate 86 12/17/17 08:00 Respiratory Rate 20 12/17/17 07:53 Blood Pressure 135/71 12/17/17 07:53 Pulse Oximetry 94 12/17/17 07:53 Height/Weight/BMI: Height 1.73 m Weight 101.9 kg Body Mass Index 33.0 Hospital Course This is a general summary of the patient's hospital course. For more details refer to the complete medical record. Hospital course: 12/15/17 Patient has been hydrated since arrival and is tolerating limited oral intake this morning without recurrent nausea or vomiting. She has not required additional antiemetics since Compazine in the ER just after midnight. Serial troponins unremarkable and no acute changes on EKG. PT/OT evaluations pending to assess patient safety and ability to ambulate; may require short-term half-way placement. Mild orthostasis present which her niece describes as chronic, may relate to nortriptyline use. Patient is historically vague, suspect component of dementia which has not been formally evaluated. JOVANNY to be obtained. Monitor accuchecks, metformin on hold at present until oral intake improves. Hospitalized observation status. Outpatient records reviewed, prior records reviewed. DNR confirmed with DPOA. 12/16/17 Not had further episodes of nausea/vomiting. IRU evaluation placed but patient's functional status to great to qualify for IRU. OT performed JOVANNY: Pt. scored a 10 - a score of 6 or greater indicates Pt. will require assist to live within the community. Deciding between home health and private pay respite care at [facility]. Concern with patient's weakness going home may be problematic. Continue with OBS status and continue to work on discharge disposition. 12/17/17 Clinically doing well. No n/v. Eating well. Ambulating in halls. Lab stable. Arrangements made for short stay of nursing care at [facility]. As medically stable, can discharge. Will continue with chronic home medications. PT/OT to help improve functional status. F/U with Dr Austin in 1 week. See orders for details. Time spent with patient: discharge greater than 30 minutes Resuscitation Status: Do Not Resuscitate Discharge Plan - Discharge Disposition Discharge Date: 12/17/17 Disposition: 04 To [facility] Home/Facility *Condition: Improved Reason For Visit (Visit label in EMR): lightheadedness and vomiting - Discharge Medications *Discharge Medications: New Hydrocodone/APAP 5/325 [[place] 5/325] 1 tab PO Q6H PRN #10 tab PRN Reason: Pain PEG 3350 17gm PACKET [Miralax] 17 gm PO DAILY PRN packet PRN Reason: Constipation Acetaminophen [Tylenol] 500 mg PO Q5H PRN tab PRN Reason: Discomfort Continue Calcium Carbonate 1,500 mg PO DAILY Cyanocobalamin (Vitamin B-12) [Vitamin B-12] 1 tab PO DAILY Ascorbate Calcium [Vitamin C] 500 mg PO DAILY Omeprazole [Prilosec] 20 mg PO PRN Cholecalciferol (Vitamin D3) [Vitamin D3] 2,000 unit PO DAILY Bumetanide Tab [Bumex 1 mg Tab] 1 mg PO DAILY Metoprolol Tartrate 100 mg PO BID Letrozole 2.5 mg PO DAILY Nortriptyline [Pamelor] 2 cap PO HS Multivitamin/Iron/Folic Acid [Centrum Complete Multivit Tab] 1 tab PO DAILY # 0 Nortriptyline HCl [Pamelor] 25 mg PO Changed Metformin HCl [Metformin HCl ER] 500 mg PO BIDWM #0 Rivaroxaban [Xarelto] 20 mg PO WS #0 - Discharge Packet/Instructions *Diet: No added salt, no concentrated sweets *Activity: Increase as able. Walker for assistance. *Pain Management/Treatment: Tylenol and [place] as needed. *Wound Care: N/A *Expected Signs/Symptoms: Improvement of strenght and functional abilities. *Notify Physician if: Temp >100.4. Intractable nausea or vomiting. Intractable diarrhea. *During Business Hours Contact: Nursing staff at [facility] *After Business Hours Contact: Nursing staff at [facility] *Pending Lab/Results: No Pending Lab - Referrals/Follow Up *Referrals/Follow Up: Alicia Austin MD [Primary Care Provider] - 1 Week (Hospital follow up - OBS admission for n/v and lightheadedness. Stay on [facility] to help improve funcitonal status. ) - Patient Handouts Patient Handouts: Lightheadedness (ED) - Dismissal Complete Discharge Instructions are:: Complete Physician Narrative - Narrative Physician: Romeo Oviedo MD Attestation Narrative: Date: 12/17/17 Time: [id number] I have independently interviewed and examined patient prior to discharge. See my progress note for details. Medically stable for discharge.
[2017-12-17 12:23] VITALS: BP 132/76; PULSE 73; RESP 18; TEMP 96.9; O2SAT 95
== END 2017-12-17 15:40 ==
LOC: EDHOLD 23:57 → ED 23:57 → SUATTDRO 12-15 02:59 → EDHOLD 12-15 03:38 → MED 12-15 03:45
PROVIDERS: ADMIT Emergency Medicine; ATTEND Hospitalist